=== PATIENT | female | born 1945 | race Caucasian/White ===

== ENCOUNTER → 2016-09-15 | Day surgery (SDC) | payer MEDICARE ==
[~2016-09-15] MED LIST: AMBI10TA PO; ASPI81 PO; BUPIVACAINE HCL PF 0.25% 30 ML VIAL ONE; BUPIVACAINE HCL PF 0.75% 30 ML VIAL ONE; CALC-137 PO; COZA100T PO; FENO160T PO; GLIP5 PO; LACTATED RINGER'S 1000 ML INJ 1,000 ML ONE; LANTUSP SQ; LIDOCAINE 1.5%/EPINEPHrine 1:200,000 PF SOLN 30 ML AMP ONE; MIDAZOLAM HCL 2 MG/2 ML VIAL ONE; NIAC500T34 PO; OXYC-360 PO; PAXI20TA26 PO; PROPOFOL 500 MG/50 ML BTL IV ONE; RED600TA OR; TRIL150T PO; ceFAZolin 2 GM PREMIX 50 ML ONE
--- NOTE | 2016-09-15 14:32 | RADRPT ---
EXAM DATE/TIME: 09/15/2016 12:09 [facility] COMPARISON: FLUOROSCOPY PORTABLE UP TO 1HR, September 15, 2016, 0:00. INDICATIONS : Intraoperative examination FINDINGS: The examination demonstrates screw fixation across the patient's fifth metatarsal fracture. The align ment post fixation is excellent. CONCLUSION: 1. Excellent alignment of the patient's fifth metatarsal fracture post fixation. Adriel Ann MD on September 15, 2016 at 14:29 Board Certified Radiologist. This report was verified electronically.
--- NOTE | 2016-09-17 10:49 | MP ---
cc: RK JOHNSON DATE OF SURGERY: 09/15/2016 PREOPERATIVE DIAGNOSIS: Right fifth metatarsal / Edmond fracture. POSTOPERATIVE DIAGNOSIS Right fifth metatarsal / Edmond fracture. PROCEDURES PERFORMED Right fifth metatarsal open reduction internal fixation. SPECIMEN None ESTIMATED BLOOD LOSS Less than 3 mls MATERIALS USED Right medical Megan Edmond screw system 4.5 mm screw 40 mm in length solid stainless steel non cannulated screw. ANESTHESIA General with popliteal and saphenous block. TOURNIQUET TIME 36 minutes at a setting of 215 mmHg. PLAN OF ACTIVITY: Post-Anesthesia Care Unit and then discharge home when stable per same-day surgery criteria. JUSTIFICATION OF PROCEDURE: This is a pleasant 62-year old female with a history of a fall she sustained a fifth metatarsal Edmond fracture, a true Edmond fracture. This was noted to have gapping upon Follow up x-ray two weeks after the injury. We devised the plan to move forward with open reduction, internal fixation likely heal and prevent a delayed union, nonunion, the patient understood that there is a area of decreased vascularity that is anatomically located in this fracture area of the fifth metatarsal. There are risks of delayed union, nonunion, need for more surgery at a later date, need for hardware removal. No guarantees were given or implied regarding the outcome. PROCEDURE IN DETAIL Under mild sedation the patient is brought to the operating placed to the supine position following the induction of general anesthesia the right lower extremity was scrubbed, prepped and draped in the usual aseptic fashion. The foot was elevated, exsanguinated previously placed mid calf tourniquet inflated to 215 mmHg. Utilizing fluoroscopic guidance the fracture of the fifth metatarsal base was marked on the skin. Next a guidewire was placed high and inside of the fifth metatarsal base being careful not to violate the medial lateral cortex of the fifth metatarsal as it passed across the fracture site. Next an over drill technique took place allowing for measuring of a 4.5 screw. A screw was then placed utilizing triangulation of AP, lateral and medial oblique views. The screw was then placed from the base of the fifth metatarsal across the Edmond fracture compressing the fracture site without any breech of the cortex. The wound was flushed with copious amounts of normal saline. The skin was then closed utilizing nylon. A bulky well-padded bandage was placed on the patient's foot. The patient was then positioned within a controlled ankle motion boot. She was transferred from OR to PACU with all vital signs stable. There is no delayed capillary fill time noted upon relieving the tourniquet. The patient is heel transfer weight bear only. I will see the patient in 3-5 days. PHYLLIS Mccloud/marv /1:54 PM /10:43 AM
== END | disposition home or self-care (01) ==
LOC: ESDC 11:16
PROVIDERS: ATTEND Podiatrist Foot & Ankle Surgery
DX: S92.351A Displaced fracture of fifth metatarsal bone, right foot, initial encounter for closed fracture (principal)
CPT/HCPCS: 01480; 28485; 64450; 73620; 76000; C1713; J0690; J2250; J7120